=== PATIENT | male | born 1995 ===

== ENCOUNTER 2024-02-20 07:55 | Outpatient (CLI) | payer OTHER, SELFPAY ==
[2024-02-20 08:32] LABS: Hemoglobin 13.7 g/dL (12.0-15.0); Mean Corpuscular HGB Conc 31.9 g/dl (32-36); Mean Corpuscular Hemoglobin 20.3 pg (26-34); Mean Corpuscular Volume 63.8 fl (80-100); Mean Platelet Volume 9.3 fl (7.4-10.4); Platelet Count Result 588 k/mm3 (150-375); Red Blood Count 6.74 M/mm3 (4.2-5.4); Red Cell Distribution Width 18.6 % (11.5-14.5); White Blood Count 11.5 K/mm3 (4.5-10.0)
[2024-02-20 08:43] LABS: Alanine Aminotransferase 37 U/L (6-35); Albumin Level 4.5 g/dL (3.5-5.1); Alkaline Phosphatase 110 U/L (38-126); Anion Gap 6 mmol/L (4-12); Aspartate Amino Transferase 29 U/L (14-36); Bilirubin,Total 0.7 mg/dL (0.2-1.3); Blood Urea Nitrogen 15 mg/dL (7-17); Calcium 9.1 mg/dL (8.4-10.2); Carbon Dioxide 27 mmol/L (22-30); Chloride 108 mmol/L (98-107); Cholesterol 163 mg/dL (0-200); Estimated Glomerular Filt Rate > 60; Glucose 96 mg/dL (65-110); HDL Direct 35 mg/dL; Sodium 141 mmol/L (137-145); Triglycerides 95 mg/dL (<150)
[2024-02-20 08:55] LABS: LDL Cholesterol Direct 114 mg/dL
[2024-02-20 10:37] LABS: Hemoglobin A1C 5.4 % (<5.7)
== END 2024-02-20 07:56 | disposition home or self-care (01) ==
LOC: ANHLAB 07:57
PROVIDERS: PCP Nurse Practitioner Family; Visit Provider Nurse Practitioner Family
DX: G47.00 Insomnia, unspecified (principal); J34.9 Unspecified disorder of nose and nasal sinuses; Z13.0 Encounter for screening for diseases of the blood and blood-forming organs and certain disorders involving the immune mechanism; Z76.89 Persons encountering health services in other specified circumstances; Z90.81 Acquired absence of spleen; Z13.228 Encounter for screening for other metabolic disorders; Z13.220 Encounter for screening for lipoid disorders; Z13.1 Encounter for screening for diabetes mellitus; Z68.28 Body mass index [BMI] 28.0-28.9, adult
CPT/HCPCS: 36415; 80053; 80061; 83036; 85027

== ENCOUNTER 2024-02-23 11:17 | Outpatient (CLI) | payer OTHER, SELFPAY ==
[2024-02-23 12:07] LABS: Iron 138 ug/dL (49-181)
[2024-02-23 12:16] LABS: Percent Iron Saturation 36 % (20-50)
== END 2024-02-23 11:18 | disposition home or self-care (01) ==
LOC: ANHLAB 11:18
PROVIDERS: PCP Nurse Practitioner Family; Visit Provider Nurse Practitioner Family
DX: R71.8 Other abnormality of red blood cells (principal)
CPT/HCPCS: 36415; 82728; 83540; 83550

== ENCOUNTER 2024-07-20 18:15 | Emergency (ER) | payer OTHER, SELFPAY ==
--- NOTE | 2024-07-20 18:16 | ED.URI ---
HPI - URI/Sore Throat General Chief Complaint: Upper Respiratory Infection Stated Complaint: Ear Pain/Congestion/Sore Throat Time Seen by Provider: 07/20/24 18:16 Source: patient Mode of arrival: ambulatory Limitations: no limitations History of Present Illness HPI Narrative: Kate is a 29-year-old male patient presenting to the clinic today with complaints of right ear pain, nasal congestion, and sore throat x1 day. He reports symptoms started yesterday. He denies any known fever had body aches and chills. Denies any shortness of breath or chest pain. MD elicited complaint: sore throat and nasal congestion Related Data Allergies Allergy/AdvReac Type Severity Reaction Status Date / Time No Known Allergies Allergy Unverified 07/20/24 18:21 Review of Systems Review of Systems: Pertinent positives per HPI. Patient denies any fever, chills, rash, headache, visual changes, dizziness, shortness of breath, chest pain, palpitations, nausea, vomiting, diarrhea, constipation, abdominal pain, or any urinary issues. PMFSH Social History Social History Smoking status: Current every day smoker Tobacco type: cigarettes Substance use: unknown Substance use type: does not use Comments At the time of my signature, I reviewed and agree with the nursing past medical, surgical, social, and family history. There is no relevant family history pertinent to the patient complaint. Exam Narrative: General: Well-developed, well nourished, in no apparent distress Head: Normocephalic, atraumatic Eyes: Pupils equally round and reactive to light bilaterally, EOM intact, sclera and conjunctive clear, no discharge, lids normal Ears: Left TM intact and clear, right TM intact, bulging, red, ear canals clear, no drainage, grossly hearing normal. Nose: Nares patent, clear nasal discharge, no inflammation, no sinus tenderness. Mouth: Oral pharynx red without lesions or masses, good dentition, MMM. Neck: Supple, trachea midline, no enlargement of anterior or posterior cervical nodes, no thyroid masses or goiter palpable. Cardio: Regular rate and rhythm, s1 and s2 normal, no murmur appreciated. Resp: Clear to auscultation bilaterally, no rhonchi, rales, wheezing or rubs Course Course Emergency Course: Portions of this record may have been created with voice recognition software. Level of Care: Express Care Visit Vital Signs Vital signs: Vital signs reviewed MDM - URI/Sore Throat MDM Narrative Medical decision making narrative: At the time of visit patient is resting comfortably on the exam table. Patient appears to be nontoxic. Labs: COVID, influenza, and strep test were all negative in the clinic today. Will send strep screen Plan: I suspect patient has URI/pharyngitis/right otitis media. Prescription for amoxicillin was sent to the pharmacy for otitis media. Supportive measures were discussed with the patient and they voiced understanding discharge instructions and agrees to treatment plan. Return precautions reviewed Differential Diagnosis Differential diagnosis: Likely sinusitis, viral infection, influenza and pharyngitis Lab Data Labs: Lab Results 07/20/24 Range/Units 18:34 POC Grp A Strep Screen Negative (Negative) Discharge Plan Discharge Clinical Impression: Acute right otitis media URI (upper respiratory infection) Qualifiers: URI type: unspecified URI Qualified Code(s): J06.9 - Acute upper respiratory infection, unspecified Pharyngitis Qualifiers: Pharyngitis/tonsillitis etiology: unspecified etiology Qualified Code(s): J02.9 - Acute pharyngitis, unspecified Patient Disposition: Home, Self-Care Condition: Stable Instructions: Antibiotic Form, Pharyngitis (ED), Ear Infection (ED), Cold Symptoms (ED) Additional Instructions: COVID, influenza, and strep test were all negative in the clinic today. We will send strep for culture. Take prescription medications only as prescribed-amoxicillin Ibuprofen 800 mg given in the clinic today Increase fluids and stay well hydrated Tylenol/motrin for pain/fever Flonase and OTC antihistamines as directed Vicks vapor rub to open sinuses Sinus rinses for congestion Cepacol spray, cough drops, throat lozenges, warm tea with honey/lemon, gargle salt water to soothe throat BRAT diet for diarrhea Clear liquids x 24 hours then advance as tolerated for nausea/vomiting Go to the ED if you develop a worsening in your condition- high fever not controlled by Tylenol or Motrin, dehydration, weakness, lethargy, shortness of breath, or chest pain. Follow up with your PCP in 3-5 days if symptoms persist. Prescriptions: New amoxicillin 875 mg tablet 875 mg PO Q12H 10 Days Qty: 20 0RF No Action fluticasone propionate 50 mcg/actuation spray,suspension 1 spray intranasal BID Qty: 16 0RF Rx Instructions: administer into each nostril cetirizine 10 mg tablet 10 mg PO DAILY Qty: 30 2RF azelastine 137 mcg (0.1 %) spray,non-aerosol 137 mcg intranasal . q.h.s. Qty: 30 3RF Rx Instructions: administer into each nostril 1 or 2 sprays q.h.s. at bedtime Follow-up/Referrals: Vianney Vázquez APRN [Primary Care Provider] - Stand Alone Forms: Work/School Release IP Time of Disposition: 18:36 Quality NIHSS Nursing Documentation ED NIHSS nursing documentation: reviewed/agree
[2024-07-20] MEDS: IBUPROFEN 400 MG TABLET 800 MG PO (18:32)
[2024-07-20 18:35] LABS: EDSTREPNEGPOS1 Negative (Negative)
[2024-07-20 18:40] VITALS: BP 128/87; PULSE 98; RESP 16; TEMP 37.4; O2SAT 98
[2024-07-20 18:43] LABS: EDCOVIDSCREEN Negative (Negative); EDINFLUASCREEN Negative (Negative); EDINFLUBSCREEN Negative (Negative)
== END 2024-07-20 18:40 | disposition home or self-care (01) ==
PROVIDERS: Emergency Provider Nurse Practitioner Family; PCP Nurse Practitioner Family
DX: H66.91 Otitis media, unspecified, right ear (principal); J06.9 Acute upper respiratory infection, unspecified; J02.9 Acute pharyngitis, unspecified; Z20.822 Contact with and (suspected) exposure to COVID-19; F17.210 Nicotine dependence, cigarettes, uncomplicated
CPT/HCPCS: 87081; 87426; 87804; 87880; 99213; A9270; G0463

== ENCOUNTER 2024-07-23 08:20 | Emergency (ER) | payer OTHER, SELFPAY ==
--- NOTE | ~2024-07-23 | XR_ITS ---
EXAMINATION: XR chest 2V DATE: 07/23/2024 09:39 INDICATION: Fever and cough. TECHNIQUE: Frontal and lateral views of the chest were obtained. COMPARISON: None. FINDINGS: There is no pneumonia, pleural effusion, or pneumothorax. The heart size is normal. IMPRESSION: 1. No acute cardiopulmonary disease. Reviewed, dictated and finalized at location A. [employer]SULTANT
[2024-07-23 08:25] VITALS: BP 126/71; PULSE 99; RESP 16; TEMP 36.8; O2SAT 97
[2024-07-23 09:27] LABS: Basophils Absolute Auto 0.1 K/mm3 (0.0-0.1); Basophils Percent Auto 0.3 % (0.2-1.2); Eosinophils Absolute Auto 0.1 K/mm3 (0-0.3); Eosinophils Percent Auto 0.7 % (0-4.4); Hematocrit 41.7 % (42.0-52.0); Hemoglobin 13.5 g/dL (14.0-18.0); Immature Granulocyte Absolute 0.06 K/mm3 (0.00-0.031); Immature Granulocyte Percent A 0.3 % (0-0.5); Lymphocytes Absolute Auto 3.49 K/mm3 (0.9-3.2); Lymphocytes Percent Auto 20.1 % (18.3-44.2); Mean Corpuscular HGB Conc 32.4 g/dl (32-36); Mean Corpuscular Hemoglobin 20.6 pg (26-34); Mean Corpuscular Volume 63.8 fl (80-100); Mean Platelet Volume 8.9 fl (7.4-10.4); Monocytes Absolute Auto 1.4 K/mm3 (0.1-0.6); Monocytes Percent Auto 7.9 % (2.6-8.5); Neutrophils Absolute Auto 12.3 K/mm3 (1.3-6.7); Neutrophils Percent Auto 70.7 % (45.5-73.1); Nucleated Red Blood Cells Perc 0.2 % (0.0-0.2); Platelet Count Result 702 k/mm3 (150-375); Red Blood Count 6.54 M/mm3 (4.6-6.20); Red Cell Distribution Width 17.7 % (11.5-14.5); White Blood Count 17.4 K/mm3 (4.5-10.0)
[2024-07-23 09:37] LABS: Alanine Aminotransferase 29 U/L (6-50); Albumin Level 4.5 g/dL (3.5-5.1); Alkaline Phosphatase 106 U/L (38-126); Anion Gap 7 mmol/L (4-12); Aspartate Amino Transferase 29 U/L (17-59); Bilirubin,Total 0.7 mg/dL (0.2-1.3); Blood Urea Nitrogen 15 mg/dL (9-20); Calcium 8.9 mg/dL (8.4-10.2); Carbon Dioxide 25 mmol/L (22-30); Chloride 107 mmol/L (98-107); Estimated CRCL calculation 133 ml/min; Estimated Glomerular Filt Rate > 60; Glucose 95 mg/dL (65-110); Potassium 4.4 mmol/L (3.4-5.0); Sodium 139 mmol/L (137-145)
--- NOTE | 2024-07-23 09:42 | ED_ITS ---
HPI - URI/Sore Throat General Chief Complaint: Upper Respiratory Infection Stated Complaint: fever of 101, fatigue, dx the flu & ear infection Time Seen by Provider: 07/23/24 09:08 Source: patient Mode of arrival: ambulatory Limitations: no limitations History of Present Illness HPI Narrative: Patient is a 29-year-old female who presents the ED with report of body aches and cough. Patient reports he was seen at an urgent care 3 days ago for similar symptoms, tested negative for COVID, influenza, RSV. Was diagnosed with a right-sided ear infection, prescribed amoxicillin. Has been taking this as prescribed, but states he is still not feeling well. Has pain throughout right ear, denies drainage. Has cough, intermittent fevers, congestion, hoarse voice, sore throat, painful swallowing. Denies difficulty breathing or feeling short of breath. Denies known sick contacts. Related Data Allergies Allergy/AdvReac Type Severity Reaction Status Date / Time No Known Allergies Allergy Verified 07/23/24 09:47 Review of Systems Review of Systems: All systems reviewed & are unremarkable except as noted in HPI. All systems reviewed & are unremarkable except as noted in HPI and below PMFSH Social History Social History Smoking status: Current every day smoker Tobacco type: cigarettes Substance use: unknown Substance use type: does not use Exam Narrative: GENERAL: Well appearing, well-nourished, non-toxic, in no acute distress. HEAD: Normocephalic, atraumatic. EENT: L TM mildly erythematous but no bulging. R TM with slight bulging, erythema present, small area of dried blood over inferior TM (around 7 oclock region). No TM perforation. No drainage. No swelling or erythema of auditory canal. Mucous membranes are slightly dry. Tonsils are enlarged bilaterally with some exudate noted throughout left tonsil. Uvula is nonedematous and midline. No protrusion of soft palate. No stridor trismus. Hoarse quality to voice. RESPIRATORY: Airway patent, respirations nonlabored. Clear to auscultation bilaterally, no rales, rhonchi, wheezing. No focal lung sounds. CARDIOVASCULAR: Regular rate and rhythm without murmurs, rubs, or gallops. MUSCULOSKELETAL: Moves all extremities. No gross deformities. SKIN: Warm, dry, normal color. NEURO: A&O X3. Speech clear. Cranial nerves II-XII grossly intact. Steady gait. No ataxic movements. PSYCHIATRIC: Appropriate mood and affect. Normal interaction. Course Vital Signs Vital signs: Vital Signs Temperature 98.3 F 07/23/24 08:25 Pulse Rate 99 07/23/24 08:25 Respiratory Rate 16 07/23/24 08:25 Blood Pressure 126/71 07/23/24 08:25 Pulse Oximetry 97 07/23/24 08:25 Oxygen Delivery Room Air 07/23/24 08:25 Temperature 98.3 F 07/23/24 08:25 Pulse Rate 87 07/23/24 11:20 Respiratory Rate 18 07/23/24 11:20 Blood Pressure 100/69 07/23/24 11:20 Pulse Oximetry 97 07/23/24 11:20 Oxygen Delivery Room Air 07/23/24 08:25 MDM - URI/Sore Throat MDM Narrative Medical decision making narrative: Patient presented to ED with several day history of URI symptoms, cough, sore throat, right ear infection. Currently on amoxicillin for this. Vital signs are stable upon arrival. Patient is afebrile. He notes he has been taking ibuprofen for the pain and fevers. Exam most notable for sania tonsillar hype rtrophy with exudate. Given decadron in the ED. No evidence of [employer]PERATOR on exam. Maintaining secretions. No stridor or trismus. No protrusion of soft palate or uvular deviation. Laboratory studies were obtained and showing wbc count of 17.4, no bandemia. CMP unremarkable. Strep negative. Wasatch negative. Chest x- ray is clear. No evidence of pneumonia. Discussed lab and imaging findings with patient. Discussed likelihood of viral URI, tonsillitis. Will switch abx to augmentin and provide short steroid pack for tonsillitis. Recommended patient have close f/u with PCP for further evaluation. Discussed strict return precautions. Patient is in agreement with plan and feels ready to go home. D/C i n stable condition. Medical Records Attestation: I reviewed the patient's medical records. Lab Data Attestation: I reviewed the patient's lab results. 07/23/24 09:22 07/23/24 09:22 Labs: Lab Results 12/06/24 12/06/24 12/06/24 Range/Units 09:21 09:22 09:40 WBC 17.4 H (4.5-10.0) K/mm3 RBC 6.54 H (4.6-6.20) M/mm3 Hgb 13.5 L (14.0-18.0) g/dL Hct 41.7 L (42.0-52.0) % MCV 63.8 L (80-100) fl MCH 20.6 L (26-34) pg MCHC 32.4 (32-36) g/dl RDW 17.7 H (11.5-14.5) % Plt Count 702 H (150-375) k/mm3 MPV 8.9 (7.4-10.4) fl Immature Gran % (Auto) 0.3 (0-0.5) % Neut % (Auto) 70.7 (45.5-73.1) % Lymph % (Auto) 20.1 (18.3-44.2) % Wasatch % (Auto) 7.9 (2.6-8.5) % Eos % (Auto) 0.7 (0-4.4) % Baso % (Auto) 0.3 (0.2-1.2) % Lymph # (Auto) 3.49 H (0.9-3.2) K/mm3 Wasatch # (Auto) 1.4 H (0.1-0.6) K/mm3 Eos # (Auto) 0.1 (0-0.3) K/mm3 Baso # (Auto) 0.1 (0.0-0.1) K/mm3 Abs Immat Gran (auto) 0.06 H (0.00-0.031) K/mm3 Absolute Neuts (auto) 12.3 H (1.3-6.7) K/mm3 Absolute Nucleated RBC 0.030 H (0.0-0.012) K/mm3 Nucleated RBC % 0.2 (0.0-0.2) % Platelet Estimate Adequate (Adequate) Anisocytosis 2+ Velva Cells 1+ Acanthocytes (Spur) 1+ Schistocytes None seen Sodium 139 (137-145) mmol/L Potassium 4.4 (3.4-5.0) mmol/L Chloride 107 (98-107) mmol/L Carbon Dioxide 25 (22-30) mmol/L Anion Gap 7 (4-12) mmol/L BUN 15 (9-20) mg/dL Creatinine 0.80 (0.7-1.3) mg/dL Estim Creat Clear Calc 133 ml/min Estimated GFR > 60 (59 - ) Glucose 95 (65-110) mg/dL Calcium 8.9 (8.4-10.2) mg/dL Total Bilirubin 0.7 (0.2-1.3) mg/dL AST 29 (17-59) U/L ALT 29 (6-50) U/L Alkaline Phosphatase 106 (38-126) U/L Total Protein 8.0 (6.3-8.2) g/dL Albumin 4.5 (3.5-5.1) g/dL Monoscreen Negative (Negative) Group A Strep (PCR) Not detected (Negative) Imaging Data Attestation: I personally reviewed and interpreted this imaging study as fol lows: Radiologist's impression: ITS Impressions Chest X-Ray 07/23/24 09:41 IMPRESSION: 1. No acute cardiopulmonary disease. Discharge Plan Discharge Clinical Impression: Upper respiratory infection Qualifiers: URI type: unspecified URI Qualified Code(s): J06.9 - Acute upper respiratory infection, unspecified Acute tonsillitis Qualifiers: Pharyngitis/tonsillitis etiology: unspecified etiology Qualified Code(s): J03.90 - Acute tonsillitis, unspecified Right otitis media Qualifiers: Otitis media type: unspecified Qualified Code(s): H66.91 - Otitis media, unspecified, right ear Patient Disposition: Home, Self-Care Condition: Stable Instructions: Antibiotic Form, Ear Infection (ED), Tonsillitis (ED), Viral Syndrome (ED), Cold Symptoms (ED) Additional Instructions: Take new antibiotics as prescribed. Take steroids as prescribed. Continue to stay well-hydrated at home. Recommend electrolyte rich fluids, Gatorade, Pedialyte, body armor. Continue Tylenol and Ibuprofen for discomfort and/or fevers. Recommend [id number] cough and cold medicines for symptom relief, Delsym, Mucinex, DayQuil, NyQuil, Sudafed, Robitussin, TheraFlu. Follow with primary care doctor for further evaluation if needed. Return to the ED if you experience chest pain, difficulty breathing, unable to keep down food or drink, severe pain, or any other symptoms of concern. Prescriptions: New methylprednisolone [Medrol (Lenny)] 4 mg tablets,dose pack See Rx Instructions PO .COMPLEX Qty: 21 0RF Rx Instructions: orally per package directions amoxicillin-pot clavulanate 875-125 mg tablet 1 tablet PO Q12H 7 Days Qty: 14 0RF No Action amoxicillin 875 mg tablet 875 mg PO Q12H 10 Days Qty: 20 0RF fluticasone propionate 50 mcg/actuation spray,suspension 1 spray intranasal BID Qty: 16 0RF Rx Instructions: administer into each nostril cetirizine 10 mg tablet 10 mg PO DAILY Qty: 30 2RF azelastine 137 mcg (0.1 %) spray,non-aerosol 137 mcg intranasal . q.h.s. Qty: 30 3RF Rx Instructions: administer into each nostril 1 or 2 sprays q.h.s. at bedtime Follow-up/Referrals: Vianney Vázquez APRN [Primary Care Provider] - Stand Alone Forms: Work/School Release IP Time of Disposition: 11:05
[2024-07-23 09:47] VITALS: BP 118/79; PULSE 84; RESP 18; O2SAT 97
[2024-07-23] MEDS: dexAMETHasone SOD PHOS INJ 10 MG/ML 1 ML VIAL IV PUSH (09:47)
[2024-07-23] MEDS: SODIUM CHLORIDE 0.9% IV 1,000 ML 999 ML IV CONT (09:47)
[2024-07-23 09:50] LABS: Monoscreen Negative (Negative)
[2024-07-23 09:50] LABS: Acanthocytes 1+; Anisocytosis 2+; Burr Cells 1+; Platelet Estimate Adequate (Adequate); Schistocytes None Seen
[2024-07-23 09:51] LABS: Negative Monotest Control Negative (Negative); Positive Monotest Control Positive (Positive)
[2024-07-23 10:12] LABS: Strep Group A RT-PCR NOT DETECTED (Negative)
[2024-07-23 11:20] VITALS: BP 100/69; PULSE 87; RESP 18; O2SAT 97
== END 2024-07-23 12:14 | disposition home or self-care (01) ==
PROVIDERS: Emergency Provider Physician Assistant; PCP Nurse Practitioner Family
DX: J06.9 Acute upper respiratory infection, unspecified (principal); J03.90 Acute tonsillitis, unspecified; H66.91 Otitis media, unspecified, right ear; F17.210 Nicotine dependence, cigarettes, uncomplicated
CPT/HCPCS: 36415; 71046; 80053; 85025; 86308; 87651; 96361; 96374; 99284; J1100; J7030

== ENCOUNTER 2024-10-07 15:39 | Emergency (ER) | payer OTHER, SELFPAY ==
--- NOTE | ~2024-10-07 | CT_ITS ---
EXAMINATION: CT lumbar spine wo con DATE: 10/07/2024 18:39 INDICATION: Low back pain TECHNIQUE: Computed tomography (CT) of the lumbar spine was performed without intravenous contrast. A utomated exposure control and iterative reconstruction technique were employed. The dose-length produ ct was 830.45 mGy-cm. COMPARISON: None FINDINGS: 7 degree lumbar dextrocurvature. Sagittal alignment is normal. Mild likely physiologic anterior wedgi ng at T12 and L1. Many vertebral body heights are normal. No fracture. Disc heights are normal. There is mild disc bulges resulting in mild central canal stenosis at L4-5 and without central canal steno sis at L5-S1. There is multilevel mild bilateral facet osteoarthritis throughout the visualized lumba r and lower thoracic spine. Mild osteoarthritis at the bilateral sacroiliac joints. No neural foramin al stenosis. Mild subarticular cystic change at the sacral side of the right sacroiliac joint. Bone i slands at the left sacral ala and left posterior iliac spine. The visualized paravertebral soft tissu es are unremarkable. IMPRESSION: 1. 7 degrees lumbar dextrocurvature with minimal spondylosis and mild multilevel facet osteoarthritis . Mild bilateral sacral erect osteoarthritis. Reviewed, dictated and finalized at location A. OR [employer]ANT IMPRESSION: 1. 7 degrees lumbar dextrocurvature with minimal spondylosis and mild multileve l facet osteoarthritis. Mild bilateral sacral erect osteoarthritis.
--- NOTE | ~2024-10-07 | XR_ITS ---
EXAMINATION: XR elbow RT min 3V DATE: 10/07/2024 16:51 INDICATION: Right elbow pain. TECHNIQUE: 4 views of right elbow were obtained. COMPARISON: None. FINDINGS: Alignment is normal. No acute fracture. There is plate-screw fixation of humeral diaphysis. Joint spaces are normal. No elbow joint effusion. IMPRESSION: 1. No acute fracture. Reviewed, dictated and finalized at location A. STRAPPER IMPRESSION: 1. No acute fracture.
[2024-10-07 15:45] VITALS: BP 152/85; PULSE 110; RESP 18; TEMP 36.9; O2SAT 99
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
[2024-10-07] MEDS: ACETAMINOPHEN 500 MG TABLET 1000 MG PO (17:44)
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
[2024-10-07] MEDS: IBUPROFEN 400 MG TABLET 800 MG PO (19:16)
[2024-10-07 19:18] VITALS: BP 148/80; PULSE 104; RESP 18; TEMP 36.6; O2SAT 98
== END 2024-10-07 19:23 | disposition home or self-care (01) ==
PROVIDERS: Emergency Provider Registered Nurse; PCP Nurse Practitioner Family
DX: S39.012A Strain of muscle, fascia and tendon of lower back, initial encounter (principal); V89.2XXA Person injured in unspecified motor-vehicle accident, traffic, initial encounter; F17.210 Nicotine dependence, cigarettes, uncomplicated
CPT/HCPCS: 72131; 73080; 99284; A9270